=== PATIENT | male | born 1975 | race Caucasian/White ===

== ENCOUNTER 2017-05-07 12:50 | Emergency (ER) | payer OTHER ==
[2017-05-07] MEDS ORDERED: SODIUM CHLORIDE 0.9% 1,000 ML IV STA (13:15)
[2017-05-07] MEDS ORDERED: SODIUM CHLORIDE 0.9% 500 ML IV STA (13:15)
--- NOTE | 2017-05-07 13:17 | ED ---
General Adult HPI - General Chief complaint: Syncope Stated complaint: Syncope Time Seen by Provider: 05/07/17 13:06 Source: patient, family, RN notes reviewed, old records reviewed Mode of arrival: wheelchair Limitations: no limitations - History of Present Illness Initial comments: This is a 41-year-old male to the ER for evaluation. Patient is ER for evaluation of syncopal event. No known medical history takes no medications. Patient states he was at a dinner last night having some drinks drinking more than he normally does. He went to a coffee this morning he states he felt sweaty his alessio was in a passed out. Patient denies a chest pain shortness breath or abdominal pain. No headache chest pain shortness or abdominal pain prior to syncope. Patient is here at family's urging without complaint - Related Data Home Medications Medication Instructions Recorded Confirmed No Known Home Medications [No 05/07/17 05/07/17 Known Home Medications] Allergies Allergy/AdvReac Type Severity Reaction Status Date / Time No Known Allergies Allergy Verified 05/07/17 13:45 Review of Systems ROS Statement: Those systems with pertinent positive or pertinent negative responses have been documented in the HPI. ROS Other: All systems not noted in ROS Statement are negative. Past Medical History Past Medical History: No Reported History History of Any Multi-Drug Resistant Organisms: None Reported Past Surgical History: Orthopedic Surgery Additional Past Surgical History / Comment(s): shoulder Past Psychological History: No Psychological Hx Reported Smoking Status: Never smoker Past Alcohol Use History: Occasional Past Drug Use History: None Reported General Exam Limitations: no limitations General appearance: alert, in no apparent distress Head exam: Present: atraumatic, normocephalic, normal inspection Eye exam: Present: normal appearance, PERRL, EOMI. Absent: scleral icterus, conjunctival injection, periorbital swelling ENT exam: Present: normal exam, mucous membranes moist Neck exam: Present: normal inspection. Absent: tenderness, meningismus, lymphadenopathy Respiratory exam: Present: normal lung sounds bilaterally. Absent: respiratory distress, wheezes, rales, rhonchi, stridor Cardiovascular Exam: Present: regular rate, normal rhythm, normal heart sounds. Absent: systolic murmur, diastolic murmur, rubs, gallop, clicks GI/Abdominal exam: Present: soft, normal bowel sounds. Absent: distended, tenderness, guarding, rebound, rigid Extremities exam: Present: normal inspection, full ROM, normal capillary refill. Absent: tenderness, pedal edema, joint swelling, calf tenderness Back exam: Present: normal inspection Neurological exam: Present: alert, oriented X3, CN II-XII intact Psychiatric exam: Present: normal affect, normal mood Skin exam: Present: warm, dry, intact, normal color. Absent: rash Course Vital Signs 05/07/17 12:52 Temperature 97.6 F Pulse Rate 92 Respiratory 18 Rate Blood Pressure 133/79 O2 Sat by Pulse 98 Oximetry - Reevaluation(s) Reevaluation #1: 05/07/17 14:04 Patient is much improved EKG Findings - EKG Comments: EKG Findings:: EKG shows normal sinus rhythm rate of 84, OR 186, QRS 78, QTc 437 Medical Decision Making - Medical Decision Making 41 male with syncopal event. Asymptomatic prior to event and asymptomatic now. Heavy drinking last night, mild dehydration. Patient can be discharged home - Lab Data Result diagrams: 05/07/17 13:31 05/07/17 13:31 Lab Results 05/07/17 05/07/17 Range/Units 13:31 13:31 WBC 11.4 H (3.8-10.6) k/uL RBC 5.62 (4.30-5.90) m/uL Hgb 16.9 (13.0-17.5) gm/dL Hct 52.4 (39.0-53.0) % MCV 93.4 (80.0-100.0) fL MCH 30.2 (25.0-35.0) pg MCHC 32.3 (31.0-37.0) g/dL RDW 12.1 (11.5-15.5) % Plt Count 250 (150-450) k/uL Neutrophils % 81 % Lymphocytes % 11 % Monocytes % 5 % Eosinophils % 0 % Basophils % 0 % Neutrophils # 9.2 H (1.3-7.7) k/uL Lymphocytes # 1.3 (1.0-4.8) k/uL Monocytes # 0.6 (0-1.0) k/uL Eosinophils # 0.0 (0-0.7) k/uL Basophils # 0.0 (0-0.2) k/uL Sodium 142 (137-145) mmol/L Potassium 4.1 (3.5-5.1) mmol/L Chloride 103 (98-107) mmol/L Carbon Dioxide 25 (22-30) mmol/L Anion Gap 14 mmol/L BUN 13 (9-20) mg/dL Creatinine 0.91 (0.66-1.25) mg/dL Est GFR (MDRD) Af Amer >60 (>60 ml/min/1.73 sqM) Est GFR (MDRD) Non-Af >60 (>60 ml/min/1.73 sqM) Glucose 98 (74-99) mg/dL Calcium 9.7 (8.4-10.2) mg/dL Phosphorus 3.3 (2.5-4.5) mg/dL Magnesium 1.8 (1.6-2.3) mg/dL Total Bilirubin 0.5 (0.2-1.3) mg/dL AST 36 (17-59) U/L ALT 70 (21-72) U/L Alkaline Phosphatase 92 (38-126) U/L Total Protein 7.9 (6.3-8.2) g/dL Albumin 5.1 H (3.5-5.0) g/dL Lipase 79 (23-300) U/L Serum Alcohol 13 mg/dL Disposition Clinical Impression: Vasovagal syncope Disposition: HOME SELF-CARE Condition: Good Instructions: Syncope (ED) Referrals: Gal Kruger MD [Primary Care Provider] - 1-2 days
[2017-05-07 13:51] LABS: ALT 70 U/L (21-72); AST 36 U/L (17-59); Albumin 5.1 g/dL (3.5-5.0); Alcohol 13 mg/dL; Alkaline Phosphatase 92 U/L (38-126); Anion Gap 14 mmol/L; Basophils % (A) 0 %; Blood Urea Nitrogen 13 mg/dL (9-20); Calcium 9.7 mg/dL (8.4-10.2); Carbon Dioxide 25 mmol/L (22-30); Chloride 103 mmol/L (98-107); Eosinophils % (A) 0 %; Glucose 98 mg/dL (74-99); HCT 52.4 % (39.0-53.0); HGB 16.9 gm/dL (13.0-17.5); Lipase 79 U/L (23-300); Lymphocytes # (A) 1.3 k/uL (1.0-4.8); Lymphocytes % (A) 11 %; MCH 30.2 pg (25.0-35.0); MCHC 32.3 g/dL (31.0-37.0); MCV 93.4 fL (80.0-100.0); Magnesium 1.8 mg/dL (1.6-2.3); Mean Platelet Volume 6.4; Monocytes # (A) 0.6 k/uL (0-1.0); Monocytes % (A) 5 %; Neutrophils # (A) 9.2 k/uL (1.3-7.7); Neutrophils % (A) 81 %; Phosphorus 3.3 mg/dL (2.5-4.5); Platelet Count 250 k/uL (150-450); Potassium 4.1 mmol/L (3.5-5.1); RBC 5.62 m/uL (4.30-5.90); RDW 12.1 % (11.5-15.5); Sodium 142 mmol/L (137-145); Total Bilirubin 0.5 mg/dL (0.2-1.3); Total Protein 7.9 g/dL (6.3-8.2); WBC 11.4 k/uL (3.8-10.6)
[2017-05-07 14:18] VITALS: BP 157/73; PULSE 83; RESP 96; TEMP 98.1
== END 2017-05-07 14:16 | disposition home or self-care (01) ==
LOC: EC 12:50
DX: R55 Syncope and collapse (principal); E86.0 Dehydration
CPT/HCPCS: 36415; 80053; 80320; 83690; 83735; 84100; 85025; 93005; 96360; 99284